=== PATIENT | male | born 1935 | race Caucasian/White ===

== ENCOUNTER 2017-06-09 22:33 | Emergency (ER) | payer MEDICARE, BC ==
--- NOTE | 2017-06-09 22:55 | Emergency Department Record ---
History of Present Illness - General Chief Complaint: Trauma Stated Complaint: FALL INJURY Time Seen by Provider: 06/09/17 22:51 Source: Patient, EMS Mode of Arrival: EMS Limitations: No limitations - History of Present Illness Initial Comments: 82 yo male presents to ED following a witnessed fall tonight. Patient reports that he was ambulating with his walker through his front entryway with the walker became caught on part of the threshold resulting in a slow fall backwards onto his buttocks with subsequent mild bump to the head. Patient reports his only injury is several skin tears to the left forearm and upper arm. Patient denies injury to the wrist, elbow, or shoulders of either upper extremity, denies injury below the neck. Patient denies injury to the chest/ abdomen/pelvis or lower extremities bilaterally. MD Complaint: Fall Onset/Timin -: Minutes(s) Loss of Consciousness: No Location: Head Location - Extremities: Left: Arm, Forearm Consistency: Constant Associated Symptoms: Denies other symptoms Treatments Prior to Arrival: Dressings - Related Data Home Medications Medication Instructions Recorded Confirmed Last Taken Diltiazem HCl [Diltiazem ER] 240 mg PO DAILY 06/09/17 06/09/17 Unknown Lisinopril [Lisinopril] 20 mg PO DAILY 06/09/17 06/09/17 Unknown Warfarin Sodium [Coumadin] 2.5 mg PO DAILY 06/09/17 06/09/17 Unknown Allergies Allergy/AdvReac Type Severity Reaction Status Date / Time No Known Drug Allergies Allergy Verified 05/23/15 10:44 Review of Systems Constitutional: Denies: Chills, Fever, Malaise, Night sweats Eyes: Denies: Eye discharge, Eye pain ENT: Denies: Congestion, Ear pain, Epistaxis Respiratory: Denies: Cough, Dyspnea Cardiovascular: Denies: Chest pain, Dyspnea on exertion Endocrine: Denies: Fatigue, Heat or cold intolerance Gastrointestinal: Denies: Abdominal pain, Nausea, Vomiting Genitourinary: Denies: Incontinence, Retention Musculoskeletal: Denies: Arthralgia, Back pain, Gout, Joint swelling Skin: Reports: Bruising, Other (ecchymosis to the left forearm, (5) superficial skin tears to the left forearm and upper arm, bleeding well controlled.). Denies: Change in color, Change in hair/nails Neurological: Denies: Abnormal gait, Confusion, Headache, Seizure Psychiatric: Denies: Anxiety Hematological/Lymphatic: Reports: Easy bleeding, Easy bruising. Denies: Anemia , Blood Clots Past Medical History - SOCIAL HISTORY Smoking Status: Former smoker - RESPIRATORY Hx Respiratory Disorders: No - CARDIOVASCULAR Hx Irregular Heartbeat: Yes (a-fib) - NEURO Hx Neuro Disorders: No - GI Hx Reflux: Yes - Hx Prostate Problems: Yes - ENDOCRINE Hx Diabetes: Yes Hx Thyroid Disease: No - MUSCULOSKELETAL Hx Arthritis: Yes - PSYCH Hx Psych Problems: No - HEMATOLOGY/ONCOLOGY Hx Hematology/Oncology Disorders: No Physical Exam - General General Appearance: Alert, Oriented x3, Cooperative, Mild distress Limitations: No limitations - Head Head exam: Atraumatic, Normocephalic, Normal inspection Head exam detail: negative: Abrasion, Contusion, Daniels's sign, General tenderness, Hematoma, Laceration - Eye Eye exam: Normal appearance. negative: Conjunctival injection, Periorbital swelling, Periorbital tenderness, Scleral icterus - ENT Ear exam: negative: Auricular hematoma, Auricular trauma Nasal Exam: negative: Active bleeding, Discharge, Dried blood, Foreign body Mouth exam: negative: Drooling, Laceration, Muffled voice, Tongue elevation - Neck Neck exam: negative: Meningismus, Tenderness - Respiratory Respiratory exam: Normal lung sounds bilaterally. negative: Rales, Respiratory distress, Rhonchi, Stridor - Cardiovascular Cardiovascular Exam: Regular rate, Normal rhythm, Normal heart sounds - GI/Abdominal GI/Abdominal exam: Soft. negative: Rebound, Rigid, Tenderness - Rectal Rectal exam: Deferred - exam: Deferred - Extremities Extremities exam: Other ((5) superficial skin tears largest of which is 3.0 x 2.0 cm in size, bleeding well controlled.). negative: Calf tenderness, Pedal edema, Tenderness - Back Back exam: Denies: CVA tenderness (R), CVA tenderness (L) - Neurological Neurological exam: Alert, Normal gait, Oriented X3 - Psychiatric Psychiatric exam: Normal affect, Normal mood - Skin Skin exam: Abrasion, Normal color Type of lesion: abrasion Course - Reevaluation(s) Reevaluation #1: 06/09/17 23:04 Patient seen and examined, Trauma Activation initiated on arrival. Skin tears are superficial in nature and due to fragility of the skin are not suitable for closure with sutures. Wound dressings applied to the areas. Patient taken for imaging currently. Reevaluation #2: 06/09/17 23:42 Labs reviewed, INR 2.38, Hgb 10.1. BUN 164 (previous 62 on the previous scale) , Creatinine 3.5 (previous 2.71-3.05), not significantly changed. CT Brain: No acute process CT Cervical Spine: No acute traumatic injury Patient and his were updated on all results, patient's CRF appears to be at his baseline. Patient and family were counseled about dressing changes daily and the importance of close follow-up. Patient appears stable for discharge at this time. Medical Decision Making - Lab Data Result diagrams: 06/09/17 22:51 06/09/17 21:45 Disposition Disposition: Discharge Clinical Impression: Warfarin-induced coagulopathy Skin tear of left elbow without complication Qualifiers: Encounter type: initial encounter Qualified Code(s): S51.012A - Laceration without foreign body of left elbow, initial encounter Fall Qualifiers: Encounter type: initial encounter Qualified Code(s): W19.XXXA - Unspecified fall, initial encounter Anemia Qualifiers: Anemia type: unspecified type Qualified Code(s): D64.9 - Anemia, unspecified Disposition: Home, Self-Care Condition: (2) Stable Instructions: Skin Tear (ED) Additional Instructions: Return to ED if your symptoms worsen or if you have any concerns. Dressing changes daily. Follow-up with your family doctor in 2-3 days as directed. Forms: Patient Portal Access Time of Disposition: 23:46 Quality - Quality Measures Quality Measures: N/A - Blood Pressure Screening Does Patient Have Any of the Following: Active Dx of HTN Blood Pressure Classification: Hypertensive Reading Systolic Measurement: 147 Diastolic Measurement: 62 Screening for High Blood Pressure: Patient Exclusion, Hx of HTN [[id number]]
[2017-06-09 22:58] LABS: HEMATOCRIT 31.2 % (42.0-52.0); HEMOGLOBIN 10.1 gm/dl (14.0-18.0); MEAN CELL VOLUME 91.8 fl (81-97); MEAN CORPUSCULAR HEMOGLOBIN 29.7 pg (27-33); MEAN CORPUSCULAR HGB CONC 32.4 g/dl (32-36); WHITE BLOOD COUNT W/O DIFF 7.4 K/uL (4.2-12.2)
[2017-06-09 22:59] LABS: BASO % 0.4 % (0-6); EOS % 1.6 % (0-6); LYMPH % 16.1 % (16-45); MEAN PLATELET VOLUME 10.1 fl (7.4-10.4); MONO % 6.9 % (0-9); PLATELET COUNT 167 K/uL (130-400); RED CELL DISTRIBUTION WIDTH 42.1 % (11.5-14.5)
[2017-06-09 23:08] LABS: INR 2.38; PROTHROMBIN TIME (PATIENT) 25.9 SECONDS (9.5-12.1)
[2017-06-09 23:12] LABS: ALB/GLOB RATIO 1.4 (1.1-1.8); ALBUMIN 3.7 g/dL (4.0-5.0); BILIRUBIN,TOTAL 0.3 mg/dL (0.2-1.0); CREATININE 3.5 mg/dL (0.7-1.2); TOTAL PROTEIN 6.4 g/dL (6.6-8.7)
[2017-06-09 23:34] LABS: BLOOD UREA NITROGEN 164.1 mg/dL (17.4-49.2)
--- NOTE | 2017-06-10 09:27 | CT SCAN REPORT ---
DATE: 06/09/2017. EXAM: CT SCAN OF THE HEAD. HISTORY: The patient has a history of a fall. TECHNIQUE: Serial axial CT scan of the head was performed at 2.5 mm intervals from the base of the skull to the apex without the use of intravenous contrast. Sagittal and coronal reconstructions are provided. COMPARISON: CT scan of the head dated 05/23/2015 is provided. FINDINGS: Extensive generalized parenchymal volume loss is noted. There is no mass or mass effect. Moderate periventricular and subcortical white matter. Chronic small-vessel ischemic changes are identified. There is no CT evidence of intra- or extra-axial fluid collection to suggest bleeding. Bone windows demonstrate no CT evidence of a fracture or dislocation of the skull. IMPRESSION: STABLE CT APPEARANCE OF THE BRAIN WITH RESPECT TO THE PRIOR EXAMINATION. JOB NUMBER: [id number] [facility]
--- NOTE | 2017-06-10 09:43 | CT SCAN REPORT ---
DATE: 06/09/2017. EXAM: CT SCAN OF THE CERVICAL SPINE. HISTORY: The patient has a history of a fall. TECHNIQUE: Serial axial CT scan of the cervical spine was performed at 2.5 mm intervals from the base of the skull to the thoracic inlet without the use of intravenous contrast. Sagittal and coronal reconstructions are provided. COMPARISON: No comparison CT is available. FINDINGS: The vertebral body height, contour, and AP alignment of the cervical spine are within normal limits. There is no CT evidence of a fracture or dislocation of the cervical spine. Multilevel advanced degenerative disc disease and facet arthropathy is noted. There is no CT evidence of a fracture or dislocation of the cervical spine. Prevertebral soft tissue is unremarkable. 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 The visualized submandibular glands, parotid glands, and thyroid glands are unremarkable. The airways are patent. Lung windows and lung apices are clear. There is no CT evidence of cervical lymphadenopathy. 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 IMPRESSION: MULTILEVEL DEGENERATIVE DISC DISEASE OF THE CERVICAL SPINE IS NOTED WITHOUT CT EVIDENCE OF AN ACUTE FRACTURE OR DISLOCATION OF THE CERVICAL SPINE. [facility]BER: [id number] [facility]
== END 2017-06-10 00:10 | disposition home or self-care (01) ==
LOC: ER 22:33
DX: S51.012A Laceration without foreign body of left elbow, initial encounter (principal); S00.93XA Contusion of unspecified part of head, initial encounter; T45.515A Adverse effect of anticoagulants, initial encounter; D64.9 Anemia, unspecified; I48.91 Unspecified atrial fibrillation; M54.2 Cervicalgia; E11.9 Type 2 diabetes mellitus without complications; W01.10XA Fall on same level from slipping, tripping and stumbling with subsequent striking against unspecified object, initial encounter; Y92.009 Unspecified place in unspecified non-institutional (private) residence as the place of occurrence of the external cause; Z87.891 Personal history of nicotine dependence
CPT/HCPCS: 70450; 72125; 80053; 85025; 85610; 99284